=== PATIENT | male | born 1940 ===

== ENCOUNTER 2021-05-25 16:17 | Outpatient (REF) | payer MEDICARE, SELFPAY ==
[2021-05-25 20:52] LABS: Abs Immature Grans 0.01 10^3/uL (0.0-0.06); Absolute Basophil Count 0.02 10^3/uL (0.0-0.2); Absolute Eosinophil Count 0.24 10^3/uL (0.0-0.7); Absolute Lymphocyte Count 1.39 10^3/uL (1.2-3.4); Absolute Monocyte Count 0.52 10^3/uL (0.1-0.8); Absolute Neutrophil Count 2.87 10^3/uL (1.2-6.7); Basophils % 0.4; Eosinophils % 4.8; HCT 42.2 % (40.0-50.0); HGB 13.9 g/dL (13.5-17.5); Immature Grans % 0.2; Lymphocytes % 27.5; MCH 27.3 pg (27.0-33.0); MCHC 32.9 % (32.0-36.0); MCV 82.9 fL (80-95); MPV 9.9 fL (8.0-11.0); Monocytes % 10.3; Neutrophils % 56.8; Nucleated RBC 0 %; Platelet Count 258 10^3/uL (130-400); RBC 5.09 10^6/uL (4.36-5.78); RDW 13.3 % (11.8-14.1); RDW-SD 40.5 fL; WBC 5.05 10^3/uL (4.4-10.8)
[2021-05-25 21:14] LABS: Anion Gap 7.5 mmol/L (3-11); BUN 25 mg/dL (7-18); CO2 28.5 mmol/L (21.0-32.0); CREATININE 0.9 mg/dL (0.70-1.30); Calcium 9.2 mg/dL (8.5-10.1); Chloride 100 mmol/L (98-107); Glucose 134 mg/dL (74-106); Potassium 4.6 mmol/L (3.5-5.1); Sodium 136 mmol/L (136-145)
== END 2021-05-25 16:18 | disposition home or self-care (01) ==
LOC: NCHCN 16:17
PROVIDERS: Visit Provider Physician Assistant
DX: I10 Essential (primary) hypertension (principal); I25.10 Atherosclerotic heart disease of native coronary artery without angina pectoris; I21.3 ST elevation (STEMI) myocardial infarction of unspecified site
CPT/HCPCS: 80048; 85025

== ENCOUNTER 2021-06-16 13:29 | Outpatient (CLI) | payer MEDICARE, SELFPAY ==
--- NOTE | 2021-06-16 13:46 | RT.EKG_ITS ---
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
== END 2021-06-16 13:30 | disposition home or self-care (01) ==
LOC: DI.CARD 13:47
PROVIDERS: PCP Physician Assistant; Referring Provider Physician Assistant; Visit Provider Internal Medicine Cardiovascular Disease
DX: I10 Essential (primary) hypertension (principal); I21.3 ST elevation (STEMI) myocardial infarction of unspecified site
CPT/HCPCS: 93010

== ENCOUNTER → 2021-06-16 13:29 | Outpatient (BNVA) | payer MEDICARE, SELFPAY | PROVIDERS: PCP Physician Assistant; Referring Provider Physician Assistant; Visit Provider Internal Medicine Cardiovascular Disease | DX: I25.2 Old myocardial infarction (principal); I10 Essential (primary) hypertension; I25.10 Atherosclerotic heart disease of native coronary artery without angina pectoris; E78.5 Hyperlipidemia, unspecified | CPT/HCPCS: 93005; 99203 ==

== ENCOUNTER 2021-06-22 19:23 | Outpatient (REF) | payer MEDICARE, SELFPAY ==
--- OUTSIDE RECORDS SUMMARY | 2021-06-22 19:26 | XMS_ITS ---
:1940 Author Organization Department [facility] rs Address [address] [place] [id number] Care Team Providers Name Role Phone PARRIS NEGRO Primary Care Provider Unavailable Insurance Providers: All historical and current Section Date Range: From patient's date of to the date document was created.This section includes the names of all active insurance providers for the patient. Insurance Type of Plan Start of End of Group Member Insurance Policy P atient's Provider Coverage Name Policy Policy Number ID Provider's Mckeon's Relationship Coverage Coverage Telephone Name to Policy Number Mckeon MEDICARE MEDICARE PART Sep 07, PART A [id number] KELIN OLEA PATIENT (WNR) (M) A 2006 37A 1 ES MEDICARE MEDICARE PART Sep 07, PART B [id number] KELIN OLEA PATIENT (WNR) (M) B 2006 37A 1 ES MEDICARE MEDICARE PART Sep 07, PART B [id number] KELIN OLEA PATIENT (WNR) (M) B 2006 [id number] 1 ES UNITED MEDICARE MCR(Apr 09, [id number] CANDI OLEA M PATIENT HEALTHCARE ADVANTAGE NR) [id number] ES MCR (WNR) * Selected Encounter This section includes the information on record at [place] for the Encounter. Date/Time Encounter Type Encounter Reason Provider Source Description Nov 19, 2020 OFFICE O/P EST OPTOMETRY ICD-10-CM Z96.1 ISAAC SANTOS 11:30 AM MOD 30-39 MIN Presence of intraocular lens with Provider Comments: Presence of intraocular lens IHE Encounter Template Text not used by [facility] Assessments - Encounter Diagnoses This section includes the primary and secondary diagnoses documented forthe Encounter. 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 Nov 19, 2020 SECONDARY Presbyopia JIMMIE MARQUEZ 12:24 PM [facility] Surgical Procedures: All associated to the encounter This section includes all Surgical Procedures and Surgical Procedure Notes associated to the Encounter.Surgical Procedures This section includes all Surgical Procedures associated to the Encounter.Surgical Procedure Date/Time Procedure Procedure Type Procedure Provider Source Qualifiers Nov 19, 2020 Comprehensive EYE EXAM&TX TOMISAAC COOPER LAURA 11:30 AM Exam, Estab ESTAB PT [facility] 1/>VST Surgical Notes There are no notes associated with this procedure. Surgical Procedure Date/Time Procedure Procedure Type Procedure Provider Source Qualifiers Nov 19, 2020 Self-Care Ed SELF-CARE ED TOMISAAC SANCHEZ 11:30 AM Provided to Pt PROVIDED TO PT [facility] Surgical Notes There are no notes associated with this procedure. Surgical Procedure Date/Time Procedure Procedure Type Procedure Provider Source Qualifiers Nov 19, 2020 Refraction DETERMINE ISAAC SANTOS ER 11:30 AM REFRACTIVE STATE [facility] Surgical Notes There are no notes associated with this procedure. Social History: Smoking Status (Most current) and Tobacco Use (All prior to encounter date) This section includes the most current, and the historical, smoking and tobacco-related health factors from the [place] facility where the Encounter took place.Current Smoking Status This section includes the most current smoking, or tobacco-related health factor, from the [place] facility where the Encounter took place. Date/Time Current Smoking Status Comment Facility Oct 18, 2020 01:00 PM VA-TOBACCO FORMER USER [place] [facility] Tobacco Use History This section includes a history of the smoking, or tobacco-related health factors, that were collected on or before the date of the Encounter. The data comes from the [place] facility where the Encounter took place. Date/Time Smoking Status/Tobacco Use Comment [facility] Oct 18, 2020 01:00 PM VA-TOBACCO QUIT 15 YRS OR MORE [place] [facility] Mar 28, 2019 04:06 PM VA-TOBACCO FORMER USER [place] [facility] Mar 28, 2019 04:06 PM VA-TOBACCO QUIT 15 YRS OR MORE [place] [facility] Feb 20, 2018 01:21 PM VA-TOBACCO FORMER USER [place] [facility] Feb 20, 2018 01:21 PM VA-TOBACCO QUIT 15 YRS OR MORE [place] [facility] Feb 23, 2017 01:51 PM LIFETIME NON-TOBACCO USER [place] [facility] 1967Mar 29, 2015 02:20 PM QUIT TOBACCO USE > 7 YEARS AGO [place] [facility] 1966Dec 16, 2007 12:52 PM QUIT TOBACCO USE > 7 YEARS AGO [place] [facility] Encounter Notes: All associated encounter notes This section contains the clinical notes associated to the Encounter. Date/Time Encounter Note(s) Provider Source Nov 19, 2020 11:21 AM EYE E & M NOTE: ISAAC SANTOS [facility] LOCAL TITLE: Eye Resident Note/Exam Template [facility] STANDARD TITLE: EYE E & M NOTE DATE OF NOTE: NOV 19, 2020@11:21 ENTRY DATE: NOV 19, 2020@11:21:57 AUTHOR: GUNNAR MEMBRENO COSIGNER: ISAAC SANTOS URGENCY: STATUS: COMPLETED Eye Resident Note/Exam Template Has ADDEN DA NEW OR ESTABLISHED PATIENT OPHTHALMIC EX AMINATION CONSULTATION, SPECIALTY CODE OR E/M SERVICE Active Outpatient Medications (excluding Supplie s): Active Outpatient Medications Status 1) LISINOPRIL 40MG TAB TAKE ONE TABLET BY MOUT H EVERY ACTIVE DAY TO CONTROL BLOOD PRESSURE 2) SIMVASTATIN 20MG TAB TAKE ONE TABLET BY BRAIN TH EVERY ACTIVE DAY TO LOWER CHOLESTEROL Active Non-VA Medications Status 1) Non-VA ASCORBIC ACID TAB DOSAGE UNKNOWN BY MOUTH ACTIVE EVERY DAY 2) Non-VA IBUPROFEN 400MG TAB 400MG BY MOUTH NEEDED ACTIVE 4 Total Medications Allergies/Adverse Reactions: Patient has answered NKA HGB A1C: 5.9 (10/18/20 13:57) GLU: 106 (02/17/20 10:26) BUN: 13 (02/17/20 10:26) B/P: 129/72 (10/18/2020 13:10) BODY MASS INDEX - OCT 18, 2020@13:10:07 23.8 Active problems - Computerized Problem List is t he source for the followin. Tobacco dependence in remission 2. Family history of coronary artery disease 3. Degenerative joint disease of hand 4. History of adenomatous polyp of colon (Estimote D CT [id number]) 5. Hypertension (SNOMED CT 37999375) 6. Hyperlipidemia (SNOMED CT 80807202) 80 year old WHITE MALE, established patient CHIEF COMPLAINT AND HISTORY OF PRESENT ILLNESS ( HPI): pt here for a CEE pt has no visual or ocular complaints pt only wears glasses to read Neurological and Psychiatric Status: Orientation : Oriented to person, time, place Mood and Affect: normal, no agitation, no anxiety, no depressive behaviors in clinic OCULAR HISTORY: Pseudophakic OU Presbyopia OU -Family history of AMD (sister) -h/o lazy eye OS per patient VISUAL ACUITY (without correction) OD: 20/60+1 PH: 20/30- OS: 20/25+1 PH: Current Rx OD +1.75 -2.25 X105 Add:+2.50 OS -0.50 -0.25 X104 Add:+2.50 REFRACTION and BEST-CORRECTED VISION OD: +1.50 - 2.25 x 105 20/25-2 OS: -.50 - 0.25 x 105 20/25+1 Add: +2.50 NVO OD: +4.00 - 2.25 x 105 OS: +2.00 - 0.25 x 105 OCULAR MOTILITY (EOM): Full without diplopia or pain OU, pursuits and saccades intact OU CONFRONTATION VIS GARCIA: full to finger counti ng OD & OS PUPILS: PERRL, NO APD PRESENT OU ORBITS/ADNEXA: Normal OU ANTERIOR SEGMENT AND SLIT LAMP EXAM: Lids/Lashes: OD: tr MGD OS: tr MGD Scleral and Conjunctiva: OD: white and quiet OS: white and quiet Cornea: OD: clear without staining OS: clear without staining Anterior Chamber: clear and free of cells or fl are OU Von Jacinda Angle estimation: OD: 44 OS: 44 Iris: normal/intact OU/ no neovascularization present ou Tonometry: icare OD 9 OS 9 Time: 1140 DILATION OU: PATIENT EDUCATED ON SIDE EFFECTS O F DILATION PRIOR TO DROP INSTILLATION. SIDE EFFECT DISCUSSED INCLUDE LIGH T SENSITIVITY AND BLURRED VISION AT NEAR. 1 gtt 1% Tropicamide 1 gtt 2.5% Phenylephrine INTERNAL EYE EXAMINATION BY SLIT LAMP, FUNDUSCOP Y AND BINOCULAR INDIRECT OPHTHALMOSCOPE: Lens: OD: PCIOL, PCO nasal + temp w/ striae th ru visual axis; centered OS: PCIOL, tr PCO and centered Vitreous: OD: syneresis present OS: syneresis present, (+) PVD Nerve: RIM INTACT AND WITHOUT FOCAL DEFECTS OR PALLOR OU OD C/D: 0.15r, small nerve, PPA 360 OS C/D: 0.10r, small nerve, PPA 360 Macula: RPE mottling, NO macular edema OU Vessels: Normal course and caliber OU Mid-peripheral and Peripheral Retina: Flat and intact 360 degrees OU ASSESSMENT/PLAN 1. Pseudophakic OU - PCO OD nasal and temp w. striae thru visual ax is, tr PCO OS - Reduced vision OD but patient is not bothered // Educate pt on nature of coniditon. No interve ntion indicated at this time. Monitor 2. Dry eye OU - pt asymptomatic //Educate pt on nauture of condition. Recommend AT and warm compresses prn 3. Refractive Error w/ presbyopia //pt wants new NVO Rx only. monitor RTC ORDER: 2 year CEE PATIENT EDUCATION: as above STUDENT SUPERVISION: Optometry student Jimmie Marquez participated in t he care of this patient. The student performed an initial history, review of systems, medication review, and ophthalmic examination. The above note represent s care provided by me and is NOT a student note. Supervising Health Unit Supervisor: Isaac Santos O.D. RESIDENT SUPERVISION: I, Gunnar Membreno, have seen and discusse d this patient with my supervising doctor. (x) My supervising doctor was present for and/ or directly examined this patient. (x) My supervising doctor agrees with my assessment and plan and is identified as a cosigner on this note. Note complete (xx) /brandt/ ISAAC SANTOS OD CHIEF, OPTOMETRY Signed: 11/19/2020 13:23 for GUNNAR MEMBRENO O.D. Optometry Resident /brandt/ ISAAC SANTOS OD CHIEF, OPTOMETRY Cosigned: 11/19/2020 13:23 11/19/2020 ADDENDUM STATUS: COMPLETED I reviewed the entire note above and discussed t he history, findings, and management plan for this pat ient with the resident. I agree with all elements as documented in the above note. /brandt/ ISAAC SANTOS OD CHIEF, OPTOMETRY Signed: 11/19/2020 13:23
--- OUTSIDE RECORDS SUMMARY | 2021-06-22 19:26 | XMS_ITS | Encounter Summary ---
:1940 Author Organization Department [facility] rs Address [address] [place] [address] Care Team Providers Name Role Phone NYENEGRO Suarez Primary Care Provider Unavailable Insurance Providers: All [...] MEDICARE MEDICARE PART Sep 07, PART A [id number] KELIN OLEA PATIENT (WNR) (M) A 2006 37A 1 ES MEDICARE MEDICARE PART Sep 07, PART B [id number] KELIN OLEA PATIENT (WNR) (M) B 2006 37A 1 ES MEDICARE MEDICARE PART Sep 07, PART B [id number] KELIN OLEA PATIENT (WNR) (M) B [id number] 1 ES UNITED MEDICARE MCR(Apr 09, [id number] CANDI OLEA M PATIENT HEALTHCARE ADVANTAGE NR) [id number] ES MCR (WNR) * Selected Encounter This section includes the information on record at [facility] for the Encounter. Date/Time Encounter Type Encounter Description Reason Provider Source Sep 20, 2020 09:13 Outpatient Encounter ADMIN PAT ACTIVTIES AM (MASNONCT) IHE Encounter Template Text not used by [facility] Plan of Treatment: Future Appointments (+ 6 months) and Future Tests (+/- 45 days) The Plan of Treatment section includes future care activities for the patient from all [place] treatment facilities. This section includes future appointments and future orders which are active, pending or scheduled.Future Appointments This section includes appointments that were scheduled to occur 6 months from the date of the Encounter, up to a maximum of 20 appointments. The [facility] [place] [facility] [place] Appointment Date/Time Appointment Type Appointment Facili ty Name Oct 18, 2020 01:00 PM AMBULATORY - [place]ICINE [place] [facility] Nov 19, 2020 11:30 AM AMBULATORY - SURGERY [place] [facility] Lab Results: +/- 30 days of the encounter This section includes the Chemistry and Hematology Lab Results on record with [place] for the patient. Radiology Reports and Pathology Reports are provided separately, in subsequent sections.Lab Results This section contains the Chemistry/Hematology Results that were resulted 30 days before or 30 days after the date of the Encounter. Date/Time Source Result Type Result - Unit Interpretation Reference Range Comment Oct 18, 2020 01:57 [facility] LIPOPROTEIN CHOLESTEROL Specimen Type: PLASMA [facility] FRACT. PANEL Comment: PATIENT NON-FASTING. LIPID PROFILE RESULTS MAY BE MISLEADING Tests performed on [employer] (405) [id number] Ordering Provider: DANIELLE LOW Report Released Date/Time: Oct 18, 2020 01:39 PM Reporting [facility] [address] [facility] [address] Performing Lab: [facility] [address] [facility] [address] CHOLESTEROL 149 mg/dL 0-199 TRIGLYCERIDE 147 mg/dL 0-149 HDL CHOLESTEROL 30 mg/dL L >40 LDL CHOLESTEROL (CALC) 90 mg/dl 0-129 Oct 18, 2020 [facility] GLYCOHEMOGLOBIN (A1C ONLY) Specimen Type: BLOOD 01:57 PM [facility] Comment: Tests performed on [employer] (405) [id number] Ordering Provider: DANIELLE LOW Report Released Date/Time: Oct 18, 2020 01:39 PM Reporting Lab: [facility] [address] [place] [facility] [place] [address] Performing Lab: [facility] [address] [address] HEMOGLOBIN A1C 5.9 % H 4.0-5.6 Social History: Smoking Status (Most current) and Tobacco Use (All prior to encounter date) This section includes the most current, and the historical, smoking and tobacco-related health factors from the [place] facility where the Encounter took place.Current Smoking Status This section includes the most current smoking, or tobacco-related health factor, from the [place] facility where the Encounter took place. Date/Time Current Smoking Status Comment Facility Mar 28, 2019 04:06 PM VA-TOBACCO QUIT 15 YRS OR MORE [facility] Tobacco Use History This section includes a history of the smoking, or tobacco-related health factors, that were collected on or before the date of the Encounter. The data comes from the [place] facility where the Encounter took place. Date/Time Smoking Status/Tobacco Use Comment [facility] Mar 28, 2019 04:06 PM VA-TOBACCO QUIT 15 YRS OR MORE [facility] Feb 20, 2018 01:21 PM VA-TOBACCO FORMER USER [place] [facility] Feb 20, 2018 01:21 PM VA-TOBACCO QUIT 15 YRS OR MORE [facility] [place] [facility] Feb 23, 2017 01:51 PM LIFETIME NON-TOBACCO USER [facility] 1967Mar 29, 2015 02:20 PM QUIT TOBACCO USE > 7 YEARS AGO [facility] 1967Dec 16, 2007 12:52 PM QUIT TOBACCO USE > 7 YEARS AGO [facility] Encounter Notes: All associated encounter notes This section contains the clinical notes associated to the Encounter. Date/Time Encounter Note(s) Provider Source Sep 20, 2020 09:13 AM PRIMARY CARE ADMINISTRATIVE NOTE: [facility] LOCAL TITLE: Administrative Note/Primary Care [facility] STANDARD TITLE: PRIMARY CARE ADMINISTRATIVE NOTE DATE OF NOTE: SEP 20, 2020@09:13 ENTRY DATE: SEP 20, 2020@09:13:24 AUTHOR: BREANN POSEY EXP COSIGNER: URGENCY: STATUS: COMPLETED RETRUDYT,KENYA LIM [address], [place] [address] [phone] DANIELLE LOW WMF 2 P 30 [] [x] Spouse [] Other [id number] MALE presented w/ CHIEF COMPLAINT OF:p t's called and said he already had a wellness check this year @ [facility] and said they are not sure he needs another one. With there insurance they would have to pay for another check-up and they don't want to pay for that. I have faxed for the records. They are thinking a bout going to [facility] due to distance needed to come to [facility]. /brandt/ BREANN POSEY CELLULAR EQUIPMENT INSTALLER Signed: 09/20/2020 09:19 Receipt Acknowledged By: * AWAITING SIGNATURE * DANIELLE LOW E
--- OUTSIDE RECORDS SUMMARY | 2021-06-22 19:26 | XMS_ITS ---
:1940 Author Organization Department [facility] rs Address [address] [place] [id number] Care Team Providers Name Role Phone NYENEGRO [...] MEDICARE MEDICARE PART Sep 07, PART A [id number] KELIN OELA PATIENT (WNR) (M) A 2006 37A 1 ES MEDICARE MEDICARE PART Sep 07, PART B [id number] KELIN OLEA PATIENT (WNR) (M) B 2006 37A 1 ES MEDICARE MEDICARE PART Sep 07, PART B [id number] KELIN OLEA PATIENT (WNR) (M) B 2006 [id number] 1 ES UNITED MEDICARE MCR(Apr 09, [id number] CANDI OLEA M PATIENT HEALTHCARE ADVANTAGE NR) [id number] ES MCR (WNR) * Selected Encounter This section includes the information on record at MD for the Encounter. Date/Time Encounter Type Encounter Reason Provider Source Description Oct 18, 2020 OFFICE O/P EST PRIMARY ICD-10-CM Z86.010 RAFAELA EDGAR 01:00 PM MOD 30-39 MIN CARE/MEDICINE Personal history of colonic polyps with Provider Comments: History of adenomatous polyp of colon ([facility] [id number]) IHE Encounter Template Text not used by [facility] Assessments - Encounter Diagnoses This section includes the primary and secondary diagnoses documented forthe Encounter. Date/Time Primary/Secondary Diagnosis Name Provider Source Diagnosis Oct 19, 2020 PRIMARY Personal history of RAFAELA EDGAR [place] 07:37 AM colonic polyps [facility] Oct 19, 2020 SECONDARY Essential (primary) RAFAELA EDGAR [place] 07:37 AM hypertension [facility] Oct 19, 2020 SECONDARY Other hyperlipidemia RAFAELA EDGAR [place] 07:37 AM [facility] Plan of Treatment: Future Appointments (+ 6 months) and Future Tests (+/- 45 days) The Plan of Treatment section includes future care activities for the patient from all MD treatment facilities. This section includes future appointments and future orders which are active, pending or scheduled.Future Appointments This section includes appointments that were scheduled to occur 6 months from the date of the Encounter, up to a maximum of 20 appointments. [facility] Appointment Date/Time Appointment Type Appointment Facili ty Name Nov 19, 2020 11:30 AM AMBULATORY - SURGERY [place] [facility] Lab Results: +/- 30 days of the encounter This section includes the Chemistry and Hematology Lab Results on record with MD for the patient. Radiology Reports and Pathology Reports are provided separately, in subsequent sections.Lab Results This section contains the Chemistry/Hematology Results that were resulted 30 days before or 30 days after the date of the Encounter. Date/Time Source Result Type Result - Unit Interpretation Reference Range Comment Oct 18, 2020 01:57 [facility]LESTEROL Specimen Type: PLASMA PM [facility] FRACT. PANEL Comment: PATIENT NON-FASTING. LIPID PROFILE RESULTS MAY BE MISLEADING Tests performed on [employer] ([employer]) (694) [id number] Ordering Provider: RAFAELA EDGAR Report Released Date/Time: Oct 18, 2020 01:39 PM Reporting Lab: [place] [facility] [address] [facility] [address] Performing Lab: [place] [facility] [address] [facility] [address] CHOLESTEROL 149 mg/dL 0-199 TRIGLYCERIDE 147 mg/dL 0-149 HDL CHOLESTEROL 30 mg/dL L >40 LDL CHOLESTEROL (CALC) 90 mg/dl 0-129 Oct 18, [address] [facility] GLYCOHEMOGLOBIN (A1C ONLY) Specimen Type: BLOOD 01:57 PM [facility] Comment: Tests performed on [employer] ([employer]) (405) [id number] Ordering Provider: RAFAELA EDGAR Report Released Date/Time: Oct 18, 2020 01:39 PM Reporting Lab: [facility] [address] [facility] [address] Performing Lab: [facility] [address] [facility] [address] HEMOGLOBIN A1C 5.9 % H 4.0-5.6 Vital Signs: All taken on the encounter date This section contains inpatient and outpatient Vital Signs collected on the date of the Encounter. Date/Time Temperature Pulse Blood Respiratory SP02 Pain Height Weight Artemio dy Source Pressure Rate Mass Index Oct 18, 98.2 F 80 129/72 18 /min 96 % 0 63.5 in 136 lb 24 [place] 2020 01:10 /min mm[Hg] [facility] Social History: Smoking Status (Most current) and Tobacco Use (All prior to encounter date) This section includes the most current, and the historical, smoking and tobacco-related health factors from the MD facility where the Encounter took place.Current Smoking Status This section includes the most current smoking, or tobacco-related health factor, from the MD facility where the Encounter took place. Date/Time Current Smoking Status Comment [facility] Oct 18, 2020 01:00 PM VA-TOBACCO FORMER USER [facility] Tobacco Use History This section includes a history of the smoking, or tobacco-related health factors, that were collected on or before the date of the Encounter. The data comes from the MD facility where the Encounter took place. Date/Time Smoking Status/Tobacco Use Comment [facility] Oct 18, 2020 01:00 PM VA-TOBACCO QUIT 15 YRS OR MORE [facility] Mar 28, 2019 04:06 PM VA-TOBACCO FORMER USER [facility] Mar 28, 2019 04:06 PM VA-TOBACCO QUIT 15 YRS OR MORE [facility] Feb 20, 2018 01:21 PM VA-TOBACCO FORMER USER [facility] Feb 20, 2018 01:21 PM VA-TOBACCO QUIT 15 YRS OR MORE [facility] Feb 23, 2017 01:51 PM LIFETIME NON-TOBACCO USER [facility] 1967Mar 29, 2015 02:20 PM QUIT TOBACCO USE > 7 YEARS AGO [facility] 1967Dec 16, 2007 12:52 PM QUIT TOBACCO USE > 7 YEARS AGO [facility] Encounter Notes: All associated encounter notes This section contains the clinical notes associated to the Encounter. Date/Time Encounter Note(s) Provider Source Oct 19, 2020 07:39 AM LETTERS: RAFAELA EDGAR LOCAL TITLE: Letter To Patient [facility] STANDARD TITLE: LETTERS DATE OF NOTE: OCT 19, 2020@07:39 ENTRY DATE: OCT 19, 2020@07:40 AUTHOR: RAFAELA EDGAR EXP COSIGNER: URGENCY: STATUS: COMPLETED [facility] [address] [place] [address] OCT 19, 2020 MR. KENYA OLEA [address] [address] Dear Mr. Kenya Alexandergio: Enclosed please find the results of your recent lab work: good news - the results are in the normal/very near normal r anges (see below): > A1c has decreased since the previous c heck at the MD; keep up the good work! Feel free to share these results with Sophia. Please contact the [facility] if you albert ve any questions or concerns: [phone] ext [phone] or Toll Free at: [phone] [place] ([phone]). Otherwise, we'll see you at your next scheduled appointment . Take care, Rafaela Edgar, MSN, PHARMACY ASSISTANT Nurse Practitioner [facility] Specific lab values are as follows: Collection DT Specimen Test Name Result Units Ref Range ------ ------ ---- ---- ------- - Cholesterol panel = blood lipid levels (indica tor of risk for atherosclerosis, or hardening of the arteries 10/18/2020 13:57 PLASMA!! CHOLESTEROL 149 mg/dL 0 - 199 10/18/2020 13:57 PLASMA!! TRIGLYCERID E 147 mg/dL 0 - 149 10/18/2020 13:57 PLASMA!! HDL CHOLEST KAYLEEN 30 L mg/dL Ref: >=40 10/18/2020 13:57 PLASMA!! LDL 90 mg/dl 0 - 129 - HbA1c: average of blood sugar over the past co uple of months (last three if available) 10/18/2020 13:57 BLOOD !! HEMOGLOBIN A1C 5.9 H % 4.0 - 5.6 02/17/2020 10:27 BLOOD HEMOGLOBIN A1C 6.0 H % 4.0 - 5.6 06/11/2019 12:52 BLOOD !! HEMOGLOBIN A1C 6.2 H % 4.0 - 5.6 Oct 18, 2020 12:28 PM PRIMARY CARE NOTE: RAFAELA EDGAR [place] LOCAL TITLE: [facility]: PRIMARY CARE NOTE DATE OF NOTE: OCT 18, 2020@12:28 ENTRY DATE: OCT 18, 2020@12:28:44 AUTHOR: RAFAELA EDGAR EXP COSIGNER: URGENCY: STATUS: COMPLETED CC: Routine follow-up care Most recent pcp visit: Community Providers: Sophia Juares at [place] HPI: rx through private insurance - [employer] e has established with community pcp in area eye care at [facility] no recurrence of night sweats has cut back on meat and beer and ice cream more fish - very little processed hearing loss - not wearing ALBERT consistentlty but that's ok vision good - followed by [facility] ROS: Gen: energy ok, appetite nml, no f/c; weight sta ble Resp: no new/worsening cough or SOB CV: denies chest pain or palpitations GI: no N/V, stools at baseline MSK: no new or worsening joint/muscle pain Extrem: no edema : no urinary frequency, urgency, hematuria - n o issues Skin: no rashes/lesions Mood: stable PMH: Hypertension Hyperlipidemia Personal History of Colonic Polyps [place] [facility]AND. L ear surgery, hearing aid hx fall- fx rib. 2008 # Rash: L elbow comes and goes - likely atopic d ermatitis/eczema - declines tx or further eval PSURGH: R cataract extraction s/p TA s/p Appy as child. FAM HX: Mom: @89yo. dementia, Parkinson's. DAD : @51 Brother: CT @ 55yo. sister: s/p CT/CABG @ 60yo brother: CABG-@ 64. PGM: hx cancer (1947 ? Site) HABITS: Tobacco: quit smoking in 1968 - prev 2 packs/day Alcohol: winde 1 glass x2 days a week Rec Drug Use: Diet: pretty healthy - cutting back on red meat Caffeine: 2 cups a day Exercise: very active - shovel, move pellets SOCIAL HX: Relationship status: x 49 years a/w. kids: 3 adult children - 1 right behind them; 1 daughter in health care no grandchildren Retired: [employer]. hobbies-> [employer] cars, gardens, reads. MEDS: Active and Recently Outpatient Medicatio ns (including Supplies): Active Outpatient Medications Status 1) LISINOPRIL 40MG TAB TAKE ONE TABLET BY MOUT H EVERY ACTIVE DAY TO CONTROL BLOOD PRESSURE 2) SIMVASTATIN 20MG TAB TAKE ONE TABLET BY BRIAN TH EVERY ACTIVE DAY TO LOWER CHOLESTEROL Active Non-VA Medications Status 1) Non-VA ASCORBIC ACID TAB DOSAGE UNKNOWN BY MOUTH ACTIVE EVERY DAY 2) Non-VA IBUPROFEN 400MG TAB 400MG BY MOUTH NEEDED ACTIVE 4 Total Medications Allergies: Patient has answered NKA Side effects from Meds: []Yes []No LABS: Lab A1c (last three) Collection DT Specimen Test Name Result Units Ref Range 02/17/2020 10:27 BLOOD HEMOGLOBIN A1C 6.0 H % 4.0 - 5.6 06/11/2019 12:52 BLOOD !! HEMOGLOBIN A1C 6.2 H % 4.0 - 5.6 !! Indicates COMMENTS AVAILABLE...Refer to Inte rim Lab Report. B12 - NONE FOUND eGFR Last 3 Results Collection DT Spec CREATI EGFR 02/17/2020 10:26 PLASM 0.88 >60 06/11/2019 12:52 PLASM 0.96 >60 06/07/2018 10:26 PLASM 0.95 >60 GLU,BUN,CREAT,LYTES GLUCOSE BUN CREAT S ODIUM K CHLOR CO2 02/17/20 10:26 106 H 13 0.88 1 39 4.5 102 26 GLU,BUN,CREAT,LYTES ANION eGFR 02/17/20 10:26 11 84 CHOL: 162 (06/11/19 12:52) HDL: 33 (06/11/19 12:52) LDL: 98 (06/11/19 12:52) TRI (06/11/19 12:52) TSH: 1.82 (02/17/20 10:27) HX: Combat: No Service Branch Service # Entered [employer] [id number] JUN 12, 1962 F 1964 HONORABLE OBJ: VS: BP: 129/72 (10/18/2020 13:10) Pulse: 80 (10/18/2020 13:10) Temp: 98.2 F [36.8 C] (10/18/2020 13:10) Resp: 18 (10/18/2020 13:10) HT(in): 63.5 in [161.3 cm] (10/18/2020 13:10) WT(lbs):136 lb [61.8 kg] (10/18/2020 13:10) 10/18/20 @ 1310 PULSE OXIMETRY: 96 BODY MASS INDEX - OCT 18, 2020@13:10:07 23.8 GEN: Well-appearing, NAD EENT: PERR, anicteric, non-injected; ears: discr iminates normal voice NECK: supple, no jvd, no carotid bruit CV: HRR, no m/g/r CHEST: CTA bilat, no crackles or wheezes ABD: soft, nontender EXT: no edema MSK: normal gait, unassisted NEURO:alert, oriented; CN II-XII grossly intact SKIN: warm, dry, no rashes PSYCH: normal affect and demeanor, normal speech pattern ASSESSMENT/PLAN: Mr. Olea is a pleasant 80 m an, dual care - followed more closely by [facility] pcp; he would like to keep pcp in [facility] for now ra ther than transferring to [facility] quite healthy, relatively uncomplicated med hx i ncludes: HTN, HLD, OA, colonic polyps > HTN: well-controlled - continue lisinopril 40mg QD - consider decreasing dose ot 20mg - he will discuss w/ [facility] pcp > HLD: hx well-controlled -> lipid levels today pending -> continue simvastatin 20mg QD > Hx Rhinosinusitis: otc antihistamine helpful - c/w zyrtec prn > Hearing loss: [facility] hearing aids - work well when he decides to wear them > COVID-19: no known hx exposure, denies current sx; following guidelines re distancing/mask wearing; no assistance w/ shoppi ng required - enc continue safe health practices per bettinali abad - C19 vax status: Moderna x2, 2nd in late June > HCM: Labs: lipids and A1c today - pending (an nual 02/2020) Immunizations: utd [employer]: [facility] 08/2017 - rec f/u in 5 yrs AAA Screening: reports [facility] AO exam: 04/2020 Eye exams: [facility] 11/2018 RTC - 12 months, or sooner PRN REMINDERS: COVID-19 Immunization: Moderna COVID-19 Vaccine given previously Patient received a prior dose of the Moderna COVID-19 Vaccine. Date: May, Exact date is unkno wn Location: [facility] Provider Patient received a prior dose of the Moderna COVID-19 Vaccine. Date: June, Exact date is unknown Location: [facility] Provider Depression Ismokl-Fign-N/U: Depression Screening, Evaluation, and Fo llow-Up: Record PHQ-2 A PHQ-2 screen was performed. Th e score was 0 which is a negative screen for depression. Over the past two weeks, how oft en have you been bothered by the following problems? 1. Little interest or pleasure i n doing things Not at all 2. Feeling down, depressed, or h opeless Not at all Results of Depression Screen: (A score of 3 or greater on the PHQ-2 is POSITIVE.) The Depression Screen was negative. Advance Directive Screen: Patient does not have a completed advanced directive on file. Patient is not interested in completing one at this t alexx. The patient received education about advan ce directives as well as written notification of his/her rights. Tobacco Use Screening: The patient is a former tobacco user. The patient quit fifteen or more years ago . Alcohol Use Screen (AUDIT-C): Alcohol Screen: SCREEN FOR ALCOHOL (AUDIT-C) An alcohol screening test (AUDIT-C ) was negative (score=2). 1. How often did you have a drink containing alcohol in the past year? Two to four times a month 2. How many drinks containing alco hol did you have on a typical day when you were drinking in the past year? One or two drinks 3. How often did you have six or m ore drinks on one occasion in the past year? Never Medication Reconciliation: Outpatient: Has the patient been taking medications as documented in the EMLR? YES: The patient has been taking medicatio ns as documented in the EMLR. Essential Medication List for Review used to complete this medication reconciliation. INCLUDED IN THIS LIST: Alphabetical list o f active outpatient [facility] and dispensed from another MD or [facility] facility (remote) as well as inp atient orders (local, pending and active), local clinic medications, loc ally documented non-VA medications, and local prescriptions that have or been discontinued in the past 90 days. - All changes in medic ations, including all non-VA/Herbal/OTC medications were entered into CPRS. - If there were any medications the patien t should no longer take, they were discontinued. - The patient/caregiver was instructed to update this list, discard old lists, and take this list to the next appo intment, whether with a VA or non-VA provider. Depression Screening: Perform PHQ-2 A PHQ-2 screen was performed. The sc ore was 0 which is a negative screen for depression. Over the past two weeks, how often h ave you been bothered by the following problems? 1. Little interest or pleasure in do ing things Not at all 2. Feeling down, depressed, or hopel ess Not at all /brandt/ RAFAELA EDGAR Nurse Practitioner Signed: 10/19/2020 07:38
--- OUTSIDE RECORDS SUMMARY | 2021-06-22 19:26 | XMS_ITS | Continuity of Care Document ---
:1940 Author Organization [facility] Care Team Providers Name Role Phone [facility] Unavailable Unavailable Problems Combined list of problems from Department of Defense and Veterans Affairs facilities. It does not include entries that were removed or entered in error. Problem Status Onset Problem Type Date of Comments Source Date Resolution Degenerative joint Active Condition W DENISSE disease of hand [place] [facility] Family history of Active Condition WH ITE coronary artery [place] disease [facility] History of Active Condition WHITE adenomatous polyp [place] of colon (SNOMED [place] [id number]) Apr 21, 2008 Entered By: RENEE LAL Comment: 04/16/08 Sep 11, 2008 Entered By: RENEE LAL Comment: adenomatous needs follow up 2011 Hyperlipidemia Active Condition WHITE (SNOMED [place] [id number]) [facility] Hypertension Active Condition WHITE (SNOMED [place] [id number]) [facility] Tobacco dependence Active Condition W DENISSE in remission [place] [facility] Apr 12, 2020 Entered By: DENISSE RODRIGUEZ Comment: smoked from age 12 or 13 up until 1968 or 1969, up to 2 ppd Apr 12, 2020 Entered By: DENISSE RODRIGUEZ Comment: appx 20 pack/year hx Diagnosis: active Diagnosis WHITE ICD-10-CM Z96.1 [place] Presence of [facility] intraocular lenswith Provider Comments: Presence of intraocular lens Diagnosis: active Diagnosis WHITE ICD-10-CM Z86.010 [place] Personal history [facility] of colonic polypswith Provider Comments: History of adenomatous polyp of colon (SCT 958952897) Diagnosis: active Diagnosis WHITE ICD-10-CM W99.XXXA R [place] Exposure to oth [facility] man-made environmental factors, init encntrwith Provider Comments: Exposure to other Man-Made Environmental Factors, Initial Encounter Diagnosis: active Diagnosis WHITE ICD-10-CM R63.4 [place] Abnormal weight [facility] losswith Provider Comments: Abnormal Weight Loss Medications Combined list of outpatient medications from Department of Defense and Veterans Affairs facilities. Medications provided include 1) outpatient medications from the last 15 months, and 2) patient-reported medications. Medication Details Route Status Patient Prescription Prescription Last Ordering Order Source Instructions Expires Number Dispense Provider Date Date ASCORBIC TAKE ORAL ACTIVE JENNIFER,PETER 04/12/ WHITE ACID TAB DOSAGE LINE 2020 [place] BY MOUTH [facility] EVERY DAY IBUPROFEN TAKE ONE ORAL ACTIVE JENNIFER,PETER 04/12/ W DENISSE 400MG TAB TABLET LINE 2020 [place] PRN [facility] LISINOPRIL TAKE ONE ORAL 04/24/2021 [id number] S ILVER,TR 04/29/ WHITE 40MG TAB TABLET 1 ISA E 2020 [place]TH [place] EVERY [facility] DAY TO CONTROL BLOOD PRESSURE SIMVASTATIN TAKE ONE ORAL 04/24/2021 [id number] SILVER,TR 04/29/ WHITE 20MG TAB TABLET 1 ISA E 2020 [place]TH [place] EVERY [facility] DAY TO LOWER CHOLESTE ROL Immunizations Combined list of available immunizations from the Department of Defense and Veterans Affairs facilities. Immunization Series Date Administered Site Reaction Lot CVX Drug St atus Comments Source Given By Number Code Health Outcomes Liaison COVID-19 2 complet WH ITE (MODERNA), 2020 ed [place] MRNA, LNP-S, J CT PF, 100 [facility] MCG/0.5 ML DOSE COVID-19 1 complet WH ITE (MODERNA), 2020 ed [place] ER MRNA, LNP-S, J CT PF, 100 [facility] MCG/0.5 ML DOSE INFLUENZA, complet WHITE UNSPECIFIED 2019 ed [place] FORMULATION SANIA T [facility] ZOSTER 2 complet NEWP ORT RECOMBINANT 2019 ed [facility] 1 complet WHIT E RECOMBINANT 2019 ed [place] [facility] INFLUENZA, complet Sun Ri se WHITE SEASONAL, 2018 ed Manner in [place] INJECTABLE [place] SANIA T [place] [facility] INFLUENZA, complet Rite A id WHITE SEASONAL, 2017 ed [place] INJECTABLE [place] [facility] INFLUENZA, complet Site: WHITE SEASONAL, 2017 ed Left RIVE R INJECTABLE Deltoid J [place] [facility] INFLUENZA, complet WHITE UNSPECIFIED 2016 ed [place] FORMULATION SANIA T [facility] INFLUENZA, complet Site: WHITE UNSPECIFIED 2014 ed Right [place] FORMULATION Deltoid [place] [facility] PNEUMOCOCCAL complet WHITE CONJUGATE PCV 2015 ed [place] 13 [place] [facility] INFLUENZA, complet Site: WHITE UNSPECIFIED 2013 ed Right [place] FORMULATION [place] [facility] INFLUENZA, complet Site: BRATTLE UNSPECIFIED 2012 ed Right SANDEEP RO FORMULATION Deltoid [facility] TDAP complet Site: WHITE 2013 ed Left [place] [facility] INFLUENZA, complet WHITE UNSPECIFIED 2011 ed [place] FORMULATION SANIA T [facility] INFLUENZA, complet WHITE UNSPECIFIED 2010 ed [place] FORMULATION SANIA T [facility] ZOSTER LIVE 05/13/ JOSHUA,CYNTHI 121 compl et WHITE 2010 A ed [place] [facility] INFLUENZA, complet Site: WHITE UNSPECIFIED 2009 ed Left [place] FORMULATION Delto[place] [facility] INFLUENZA, complet WHITE UNSPECIFIED 2007 ed [place] FORMULATION SANIA T [facility] PNEUMOCOCCAL, complet Sit e:Left WHITE UNSPECIFIED 2007 ed Deltoid RIVER FORMULATION SANIA T [facility] TD(ADULT) complet dog bit e WHITE UNSPECIFIED 2005 ed [place] FORMULATION SANIA T [facility] Results Combined list of recent chemistry, hematology and other laboratory results from Department of Defense and Veterans Affairs, ranging from 15 months to all on record, depending upon the facility. Order Results Value Reference Date Interpretation Specimen Commen ts Source Name Range LIPOPROTE CHOLESTEROL 149 0 - 199 10/18 Specimen T ype: PLASMA WHITE IN [MASS/VOLUM mg/dL /2020 Comment: PATIENT NON-FASTING. LIPID PROFILE RESULTS MAY BE MISLEADING Tests performed on [employer] (130) SN:[id number] RIVER CHOLESTER E] IN SERUM Ordering Provider: DANIELLE LOW OL FRACT. OR PLASMA Report Released Date/Time: Oct 18, 2020 01:39 PM [facility] PANEL Reporting [facility] [address] [facility] [address] Performing Lab: [facility] [address] [facility] [address] LIPOPROTE TRIGLYCERID 147 0 - 149 10/18 Specimen T ype: PLASMA WHITE IN E mg/dL /2020 Comment: PATIENT NON-FASTING. LIPID PROFILE RESULTS MAY BE MISLEADING Tests performed on [employer] (405) SN:[id number] RIVER CHOLESTER [MASS/VOLUM Ordering Provider: DANIELLE LOW OL FRACT. E] IN SERUM Report Released Date/Time: Oct 18, 2020 01:39 PM [facility] PANEL OR PLASMA Reporting Lab: [place] [facility] [address] [facility] [address] Performing Lab: [place] [facility] [address] [facility] [address] LIPOPROTE CHOLESTEROL 30 mg/dL 40 07/12 L Specimen Type: PLASMA WHITE IN IN HDL /2020 Comment: PATIENT NON-FASTING. LIPID PROFILE RESULTS MAY BE MISLEADING Tests performed on [employer] (405) SN:[id number] RIVER CHOLESTER [MASS/VOLUM Ordering Provider: DANIELLE LOW OL FRACT. E] IN SERUM Report Released Date/Time: Oct 18, 2020 01:39 PM [facility] PANEL OR PLASMA Reporting Lab: [place] [facility] [address] [place] [facility] [place] [place] [address] Performing Lab: [place] [facility] [address] [facility] [address] LIPOPROTE CHOLESTEROL 90 mg/dl 0 - 129 10/18 Specimen Type: PLASMA WHITE IN IN LDL /2020 Comment: PATIENT NON-FASTING. LIPID PROFILE RESULTS MAY BE MISLEADING Tests performed on [employer] (405) SN:[id number] RIVER CHOLESTER [MASS/VOLUM Ordering Provider: DANIELLE LOW OL FRACT. E] IN SERUM Report Released Date/Time: Oct 18, 2020 01:39 PM [facility] PANEL OR PLASMA Reporting Lab: [place] [facility] BY [address] [place] [facility] [place] [place] [address] CALCULATION Performing Lab: [place] [facility] [address] [facility] [address] GLYCOHEMO HEMOGLOBIN 5.9 % 4.0 - 5.6 07/12 H Specimen Type: BLOOD WHITE GLOBIN A1C/HEMOGLO /2020 Comment: Tests performed on [employer] (405) SN:[id number] RIVER (A1C BIN.TOTAL Ordering Provider: DANIELLE LOW ONLY) IN BLOOD BY Report Released Date/Time: Oct 18, 2020 01:39 PM [facility] HPLC Reporting Lab: [place] [facility] [address] [facility] [address] Performing Lab: [place] [facility] [address] [facility] [address] CRP(INFLA C REACTIVE 1.5 mg/L 0 - 5.0 02/16 Specimen T ype: PLASMA WHITE MMATORY) PROTEIN /2019 No comment ente red. RIVER [MASS/VOLUM Ordering Provider: DANIELLE LOW E] IN SERUM Report Released Date/Time: Feb 17, 2020 07:36 AM [facility] OR PLASMA Reporting Lab: [place] [facility] [address] [facility] [address] Performing Lab: [place] [facility] [address] [facility] [address] ESR(NEW) ERYTHROCYTE 11 mm/hr 0 - 20 02/16 Specimen T ype: BLOOD WHITE SEDIMENT /2019 No comment e ntered. RIVER ON RATE Ordering Provider: DANIELLE LOW Report Released Date/Time: Feb 17, 2020 07:36 AM [facility] Reporting Lab: [place] [facility] [address] [facility] [address] Performing Lab: [place] [facility] [address] [facility] [address] CBC LEUKOCYTES 4.7 4.5 - 11.0 02/16 Specimen T ype: BLOOD WHITE PROFILE [#/VOLUME] 10*3/uL /2019 No comment en tered. RIVER IN BLOOD BY Ordering Provider: DANIELLE LOW AUTOMATED Report Released Date/Time: Feb 17, 2020 07:36 AM [facility] COUNT Reporting Lab: [place] [facility] [address] [facility] [address] Performing Lab: [place] [facility] [address] [facility] [address] CBC ERYTHROCYTE 5.15 4.23 - 11 Specimen Typ e: BLOOD WHITE PROFILE S 10*6/uL 5.66 /2019 No comment enter ed. RIVER [#/VOLUME] Ordering Provider: DANIELLE LWO IN BLOOD BY Report Released Date/Time: Feb 17, 2020 07:36 AM [facility] AUTOMATED Reporting Lab: [place] [facility] COUNT [address] [facility] [address] Performing Lab: [place] [facility] [address] [facility] [address] CBC HEMOGLOBIN 14.3 12.8 - 17 02/16 Specimen Ty pe: BLOOD WHITE PROFILE [MASS/VOLUM g/dl /2019 No comment e ntered. RIVER E] IN BLOOD Ordering Provider: DANIELLE LOW Report Released Date/Time: Feb 17, 2020 07:36 AM [facility] Reporting Lab: [place] [facility] [address] [facility] [address] Performing Lab: [place] [facility] [address] [facility] [address] CBC HEMATOCRIT 44.4 % 39.2 - 02/16 Specimen Type : BLOOD WHITE PROFILE [VOLUME 50.4 No comment enter ed. RIVER FRACTION] Ordering Provider: DANIELLE LOW OF BLOOD BY Report Released Date/Time: Feb 17, 2020 07:36 AM [facility] AUTOMATED Reporting Lab: [place] [facility] COUNT [address] [facility] [address] Performing Lab: [place] [facility] [address] [facility] [address] CBC MCV 86.2 fl 82 - 99 02/16 Specimen Type: BLOOD WHITE PROFILE [ENTITIC /2019 No comment ente red. RIVER VOLUME] BY Ordering Provider: DANIELLE LOW AUTOMATED Report Released Date/Time: Feb 17, 2020 07:36 AM [facility] COUNT Reporting Lab: [place] [facility] [address] [facility] [address] Performing Lab: [place] [facility] [address] [facility] [address] CBC MCH 27.8 pg 26.2 - 02/16 Specimen Type: BLOOD WHITE PROFILE [ENTITIC 32.6 /2019 No comment ente red. RIVER MASS] BY Ordering Provider: DANIELLE LOW AUTOMATED Report Released Date/Time: Feb 17, 2020 07:36 AM [facility] COUNT Reporting Lab: [place] [facility] [address] [facility] [address] Performing Lab: [place] [facility] [address] [facility] [address] CBC MCHC 32.2 30.8 - 02/16 Specimen Type: BLOOD WHITE PROFILE [MASS/VOLUM g/dl 35.1 /2019 No comment e ntered. RIVER E] BY Ordering Provider: DANIELLE LOWT AUTOMATED Report Released Date/Time: Feb 17, 2020 07:36 AM [facility] COUNT Reporting Lab: [place] [facility] [address] [facility] [address] Performing Lab: [place] [facility] [address] [facility] [address] CBC PLATELETS 226 140 - 360 11/10 Specimen Typ e: BLOOD WHITE PROFILE [#/VOLUME] 10*3/uL /2019 No comment en tered. RIVER IN BLOOD BY Ordering Provider: DANIELLE LOW J[place] AUTOMATED Report Released Date/Time: Feb 17, 2020 07:36 AM [facility] COUNT Reporting Lab: [place] [facility] [address] [facility] [address] Performing Lab: [place] [facility] [address] [facility] [address] CBC PLATELET 8.6 fl 9.2 - 12.4 11/10 L Specimen Typ e: BLOOD WHITE PROFILE MEAN VOLUME /2019 No comment e ntered. RIVER [ENTITIC Ordering Provider: DANIELLE LOW VOLUME] IN Report Released Date/Time: Feb 17, 2020 07:36 AM [facility] BLOOD BY Reporting Lab: [place] [facility] AUTOMATED [address] [facility] [address] COUNT Performing Lab: [place] [facility] [address] [facility] [address] CBC ERYTHROCYTE 13.4 % 12.0 - 11/10 Specimen Typ e: BLOOD WHITE PROFILE DISTRIBUTIO 16.0 /2019 No comment e ntered. RIVER N WIDTH Ordering Provider: DANIELLE LOW [place] [RATIO] BY Report Released Date/Time: Feb 17, 2020 07:36 AM [facility] AUTOMATED Reporting Lab: [place] [facility] COUNT [address] [facility] [address] Performing Lab: [place] [facility] [address] [facility] [address] CBC LYMPHOCYTES 33.5 % 14.0 - 11/10 Specimen Typ e: BLOOD WHITE PROFILE /100 42.3 /2020 No comment enter ed. RIVER LEUKOCYTES Ordering Provider: DANIELLE LOW [place] IN BLOOD BY Report Released Date/Time: Feb 17, 2020 07:36 AM [facility] AUTOMATED Reporting Lab: [place] [facility] COUNT [address] [facility] [place] [address] Performing Lab: [place] [facility] [address] [facility] [address] CBC MONOCYTES/1 6.2 % 5.1 - 13.7 02/16 Specimen Type: BLOOD WHITE PROFILE No comment enter ed. RIVER LEUKOCYTES Ordering Provider: DANIELLE LOW [place] IN BLOOD BY Report Released Date/Time: Feb 17, 2020 07:36 AM [facility] AUTOMATED Reporting Lab: [place] [facility] COUNT [address] [facility] [address] Performing Lab: [place] [facility] [address] [facility] [address] CBC GRANULOCYTE 55.0 % 43.7 - 02/16 Specimen Typ e: BLOOD WHITE PROFILE S/100 75.8 No comment enter ed. RIVER LEUKOCYTES Ordering Provider: DANIELLE LOW [place] IN BLOOD BY Report Released Date/Time: Feb 17, 2020 07:36 AM [facility] AUTOMATED Reporting Lab: [place] [facility] COUNT [address] [facility] [address] Performing Lab: [place] [facility] [address] [facility] [address] CBC EOSINOPHILS 3.8 % 0.4 - 6.8 02/16 Specimen T ype: BLOOD WHITE PROFILE / No comment enter ed. RIVER LEUKOCYTES Ordering Provider: DANIELLE LOW [place] IN BLOOD BY Report Released Date/Time: Feb 17, 2020 07:36 AM [facility] AUTOMATED Reporting Lab: [place] [facility] COUNT [address] [facility] [address] Performing Lab: [place] [facility] [address] [facility] [place] [address] CBC BASOPHILS/1 1.3 % 0.1 - 2.0 02/16 Specimen T ype: BLOOD WHITE PROFILE No comment enter ed. RIVER LEUKOCYTES Ordering Provider: DANIELLE LOW [place] IN BLOOD BY Report Released Date/Time: Feb 17, 2020 07:36 AM [facility] AUTOMATED Reporting Lab: [place] [facility] COUNT [address] [facility] [address] Performing Lab: [place] [facility] [address] [facility] [address] CBC IMMATURE 0.2 % 0.0 - 0.7 02/16 Specimen Type : BLOOD WHITE PROFILE GRANULOCYTE No comment e ntered. RIVER S/100 Ordering Provider: DANIELLE LOW LEUKOCYTES Report Released Date/Time: Feb 17, 2020 07:36 AM [facility] IN BLOOD BY Reporting Lab: [place] [facility] AUTOMATED [address] [facility] [address] COUNT Performing Lab: [place] [facility] [address] [facility] [address] CBC NUCLEATED 0.0 0.0 - 0.0 02/16 Specimen Typ e: BLOOD WHITE PROFILE ERYTHROCYTE /100WBC /2019 No comment e ntered. RIVER S Ordering Provider: DANIELLE LOW [#/VOLUME] Report Released Date/Time: Feb 17, 2020 07:36 AM [facility] IN BLOOD BY Reporting Lab: [place] [facility] AUTOMATED [address] [facility] [address] COUNT Performing Lab: [place] [facility] [address] [facility] [address] CBC IMMATURE 0.0 0 - 0.06 02/16 Specimen Type: BLOOD WHITE PROFILE GRANULOCYTE 10*3/uL /2019 No comment e ntered. RIVER S Ordering Provider: DANIELLE LOW [#/VOLUME] Report Released Date/Time: Feb 17, 2020 07:36 AM [facility] IN BLOOD Reporting Lab: [place] [facility] [address] [facility] [address] Performing Lab: [place] [facility] [address] [facility] [address] CBC BASOPHILS 0.1 0.01 - 02/16 Specimen Type: BLOOD WHITE PROFILE [#/VOLUME] 10*3/uL 0.13 No comment en tered. RIVER IN BLOOD BY Ordering Provider: DANIELLE LOW AUTOMATED Report Released Date/Time: Feb 17, 2020 07:36 AM [facility] COUNT Reporting Lab: [place] [facility] [address] [facility] [address] Performing Lab: [place] [facility] [address] [facility] [address] CBC EOSINOPHILS 0.2 0.03 - 02/16 Specimen Typ e: BLOOD WHITE PROFILE [#/VOLUME] 10*3/uL 0.44 /2019 No comment en tered. RIVER IN BLOOD BY Ordering Provider: DANIELLE LOW AUTOMATED Report Released Date/Time: Feb 17, 2020 07:36 AM [facility] COUNT Reporting Lab: [place] [facility] [address] [facility] [address] Performing Lab: [place] [facility] [address] [facility] [address] CBC LYMPHOCYTES 1.6 1.0 - 3.2 02/16 Specimen T ype: BLOOD WHITE PROFILE [#/VOLUME] 10*3/uL No comment en tered. RIVER IN BLOOD BY Ordering Provider: DANIELLE LOW AUTOMATED Report Released Date/Time: Feb 17, 2020 07:36 AM [facility] COUNT Reporting Lab: [place] [facility] [address] [facility] [address] Performing Lab: [place] [facility] [address] [facility] [address] CBC MONOCYTES 0.3 0.3 - 1.1 02/16 Specimen Typ e: BLOOD WHITE PROFILE [#/VOLUME] 10*3/uL No comment en tered. RIVER IN BLOOD BY Ordering Provider: DANIELLE LOW AUTOMATED Report Released Date/Time: Feb 17, 2020 07:36 AM [facility] COUNT Reporting Lab: [place] [facility] [address] [facility] [address] Performing Lab: [place] [facility] [address] [facility] [address] CBC NEUTROPHILS 2.6 2.2 - 7.6 02/16 Specimen T ype: BLOOD WHITE PROFILE [#/VOLUME] 10*3/uL No comment en tered. RIVER IN BLOOD BY Ordering Provider: DANIELLE LOW AUTOMATED Report Released Date/Time: Feb 17, 2020 07:36 AM [facility] COUNT Reporting Lab: [place] [facility] [address] [facility] [address] Performing Lab: [place] [facility] [address] [facility] [address] CBC NUCLEATED 0.00 0 - 0 02/16 Specimen Type: BLOOD WHITE PROFILE ERYTHROCYTE 10*3/uL No comment e ntered. RIVER S Ordering Provider: DANIELLE LOW [#/VOLUME] Report Released Date/Time: Feb 17, 2020 07:36 AM [facility] IN BLOOD BY Reporting Lab: [facility] AUTOMATED [address] [facility] [address] COUNT Performing Lab: [facility] [address] [facility] [address] P4 UREA 13 mg/dL 7 - 25 02/16 Specimen Type: PLASMA WHITE GLU,BUN,C NITROGEN /2020 No comment en tered. RIVER REAT,LYTE [MASS/VOLUM Ordering Provider: DANIELLE LOW SCA E] IN SERUM Report Released Date/Time: Feb 17, 2020 07:36 AM [facility] OR PLASMA Reporting Lab: [facility] [address] [facility] [address] Performing Lab: [facility] [address] [facility] [address] P4 SODIUM 139 135 - 145 02/16 Specimen Type: PLASMA WHITE GLU,BUN,C [MOLES/VOLU mmol/L /2019 No comment entered. RIVER REAT,LYTE ME] IN Ordering Provider: DANIELLE LOW SCA SERUM OR Report Released Date/Time: Feb 17, 2020 07:36 AM [facility] PLASMA Reporting Lab: [facility] [facility] [address] [facility] [address] Performing Lab: [facility] [address] [facility] [address] P4 POTASSIUM 4.5 3.5 - 5.0 02/16 Specimen Typ e: PLASMA WHITE GLU,BUN,C [MOLES/VOLU mmol/L /2019 No comment entered. RIVER REAT,LYTE ME] IN Ordering Provider: DANIELLE LOW SCA SERUM OR Report Released Date/Time: Feb 17, 2020 07:36 AM [facility] PLASMA Reporting Lab: [facility] [address] [facility] [address] Performing Lab: [facility] [address] [facility] [address] P4 CHLORIDE 102 100 - 110 02/16 Specimen Type : PLASMA WHITE GLU,BUN,C [MOLES/VOLU mmol/L /2019 No comment entered. RIVER REAT,LYTE ME] IN Ordering Provider: DANIELLE LOW CA SERUM OR Report Released Date/Time: Feb 17, 2020 07:36 AM [facility] PLASMA Reporting Lab: [place] [facility] [address] [facility] [address] Performing Lab: [facility] [facility] [address] [facility] [address] P4 CARBON 26 20 - 30 11/10 Specimen Type: PLASMA WHITE GLU,BUN,C DIOXIDE, mmol/L /2019 No comment en tered. RIVER REAT,LYTE TOTAL Ordering Provider: DANIELLE LOW CA [MOLES/VOLU Report Released Date/Time: Feb 17, 2020 07:36 AM [facility] ME] IN Reporting Lab: [place] [facility] [facility] SERUM OR [address] [facility] [address] PLASMA Performing Lab: [facility] [address] P4 ANION GAP 11 4 - 16 02/16 Specimen Type: PLASMA WHITE GLU,BUN,C IN SERUM OR mmol/L /2019 No comment entered. RIVER REAT,LYTE PLASMA Ordering Provider: DANIELLE LOW SCA Report Released Date/Time: Feb 17, 2020 07:36 AM [facility] Reporting Lab: [place] [facility] [facility] [address] [facility] [address] Performing Lab: [facility] [facility] [address] [facility] [address] P4 GLUCOSE 106 65 - 100 11/10 H Specimen Type: PLASMA WHITE GLU,BUN,C [MASS/VOLUM mg/dL /2019 No comment entered. RIVER REAT,LYTE E] IN SERUM Ordering Provider: DANIELLE LOWCA OR PLASMA Report Released Date/Time: Feb 17, 2020 07:36 AM [facility] Reporting Lab: [facility] [address] [facility] [address] Performing Lab: [facility] [address] [facility] [address] P4 CREATININE 0.88 0.5 - 1.5 11 Specimen Ty pe: PLASMA WHITE GLU,BUN,C [MASS/VOLUM mg/dl /2019 No comment entered. RIVER REAT,LYTE E] IN SERUM Ordering Provider: SILVER,DANIELLE E JCT S,CA OR PLASMA Report Released Date/Time: Feb 17, 2020 07:36 AM [facility] Reporting Lab: [place] [facility] [address] [facility] [address] Performing Lab: [facility] [address] [facility] [address] P4 CALCIUM 9.8 8.5 - 10.5 02/16 Specimen Type : PLASMA WHITE GLU,BUN,C [MASS/VOLUM mg/dL /2019 No comment entered. RIVER REAT,LYTE E] IN SERUM Ordering Provider: DANIELLE LOWT S,CA OR PLASMA Report Released Date/Time: Feb 17, 2020 07:36 AM [facility] Reporting Lab: [place] [facility] [address] [facility] [address] Performing Lab: [facility] [address] [facility] [address] P4 GLOMERULAR 84 60 02/16 Specimen Type : PLASMA WHITE GLU,BUN,C FILTRATION mL/min /2019 No comment entered. RIVER REAT,LYTE RATE/1.73 Ordering Provider: DANIELLE LOW S,CA SQ Report Released Date/Time: Feb 17, 2020 07:36 AM [facility] M.PREDICTED Reporting Lab: [facility] [[address] [facility] [address] RATE/AREA] Performing Lab: [facility] OR [address] [facility] [address] PLASMA BY CREATININE- BASED FORMULA (MDRD) LIVER PROTEIN 7.6 g/dL 6.0 - 8.5 02/16 Specimen Type : PLASMA WHITE PROFILE [MASS/VOLUM /2019 No comment e ntered. RIVER E] IN SERUM Ordering Provider: DANIELLE LOW [place] PLASMA Report Released Date/Time: Feb 17, 2020 07:36 AM [facility] Reporting Lab: [facility] [place] [facility] [address] [facility] [address] Performing Lab: [facility] [place] [facility] [address] [facility] [address] LIVER ALBUMIN 4.0 g/dL 3.2 - 5.0 02/16 Specimen Type : PLASMA WHITE PROFILE [MASS/VOLUM /2019 No comment e ntered. RIVER E] IN SERUM Ordering Provider: DANIELLE LOW [place] PLASMA Report Released Date/Time: Feb 17, 2020 07:36 AM [facility] Reporting Lab: [place] [facility] [address] [facility] [address] Performing Lab: [place] [facility] [address] [facility] [address] LIVER BILIRUBIN.T 0.8 0.2 - 1.2 02/16 Specimen T ype: PLASMA WHITE PROFILE OTAL mg/dL /2019 No comment enter ed. RIVER [MASS/VOLUM Ordering Provider: DANIELLE LOW E] IN SERUM Report Released Date/Time: Feb 17, 2020 07:36 AM [facility] OR PLASMA Reporting Lab: [place] [facility] [address] [facility] [address] Performing Lab: [place] [facility] [address] [facility] [address] LIVER ALKALINE 58 U/L 40 - 150 02/16 Specimen Type: PLASMA WHITE PROFILE PHOSPHATASE /2019 No comment e ntered. RIVER [ENZYMATIC Ordering Provider: DANIELLE LOW ACTIVITY/VO Report Released Date/Time: Feb 17, 2020 07:36 AM [facility] LUME] IN Reporting Lab: [place] [facility] SERUM OR [address] [facility] [address] PLASMA Performing Lab: [place] [facility] [address] [facility] [address] LIVER ALANINE 18 U/L 7 - 52 02/16 Specimen Type: PLASMA WHITE PROFILE AMINOTRANSF /2019 No comment e ntered. RIVER ERASE Ordering Provider: DANIELLE LOW [ENZYMATIC Report Released Date/Time: Feb 17, 2020 07:36 AM [facility] ACTIVITY/VO Reporting Lab: [place] [facility] LUME] IN [address] [facility] [address] SERUM OR Performing Lab: [place] [facility] PLASMA [address] [facility] [place] [address] LIVER ASPARTATE 18 U/L 5 - 34 02/16 Specimen Type: PLASMA WHITE PROFILE AMINOTRANSF /2019 No comment e ntered. RIVER ERASE Ordering Provider: DANIELLE LOW [ENZYMATIC Report Released Date/Time: Feb 17, 2020 07:36 AM [facility] ACTIVITY/VO Reporting Lab: [place] [facility] LUME] IN [address] [facility] [address] SERUM OR Performing Lab: [facility] PLASMA [address] [facility] [address] LIVER FIB-4 SCORE 1.46 <2.67 - 02/16 Specimen Typ e: PLASMA WHITE PROFILE INDEX 2.67 /2019 No comment enter ed. RIVER Ordering Provider: DANIELLE LOW Report Released Date/Time: Feb 17, 2020 07:36 AM [facility] Reporting Lab: [facility] [address] [facility] [address] Performing Lab: [facility] [address] [facility] [address] GLYCOHEMO HEMOGLOBIN 6.0 % 4.0 - 5.6 02/16 H Specimen Type: BLOOD WHITE GLOBIN A1C/HEMOGLO /2019 No comment e ntered. RIVER (A1C BIN.TOTAL Ordering Provider: DANIELLE LOW ONLY) IN BLOOD BY Report Released Date/Time: Feb 17, 2020 07:36 AM [facility] HPLC Reporting Lab: [place] [facility] [address] [facility] [address] Performing Lab: [place] [facility] [address] [facility] [address] URINALYSI COLOR OF Yellow 02/16 Specimen Type : URINE WHITE S URINE /2019 No comment enter ed. RIVER W/REFLEX Ordering Provider: DANIELLE LOW TO Report Released Date/Time: Feb 17, 2020 07:36 AM [facility] CULTURE Reporting Lab: [facility] [address] [facility] [address] Performing Lab: [place] [facility] [address] [facility] [address] URINALYSI SPECIFIC 1.015 1.003 - 02/16 Specimen Type : URINE WHITE S GRAVITY OF 1.030 /2019 No comment en tered. RIVER W/REFLEX URINE BY Ordering Provider: DANIELLE LOW TO REFRACTOMET Report Released Date/Time: Feb 17, 2020 07:36 AM [facility] CULTURE RY Reporting Lab: [facility] [address] [facility] [address] Performing Lab: [place] [address] [facility] [address] URINALYSI UROBILINOGE <2.0mg/d <2.0 - 2.0 11/10 Specim en Type: URINE WHITE S N L /2019 No comment enter ed. RIVER W/REFLEX [MASS/VOLUM Ordering Provider: DANIELLE LOW TO E] IN URINE Report Released Date/Time: Feb 17, 2020 07:36 AM [facility] CULTURE Reporting Lab: [place] [facility] [address] [facility] [address] Performing Lab: [place] [facility] [address] [facility] [address] URINALYSI BILIRUBIN.T NEG 02/16 Specimen T ype: URINE WHITE S OTAL No comment enter ed. RIVER W/REFLEX [PRESENCE] Ordering Provider: DANIELLE LOW TO IN URINE BY Report Released Date/Time: Feb 17, 2020 07:36 AM [facility] CULTURE TEST STRIP Reporting Lab: [place] [facility] [address] [facility] [address] Performing Lab: [place] [facility] [address] [facility] [address] URINALYSI KETONES NEGmg/dL 02/16 Specimen Type : URINE WHITE S [PRESENCE] /2019 No comment en tered. RIVER W/REFLEX IN URINE Ordering Provider: DANIELLE LOW TO Report Released Date/Time: Feb 17, 2020 07:36 AM [facility] CULTURE Reporting Lab: [place] [facility] [address] [facility] [address] Performing Lab: [place] [facility] [address] [facility] [address] URINALYSI GLUCOSE NEGmg/dL 02/16 Specimen Type : URINE WHITE S [MASS/VOLUM No comment e ntered. RIVER W/REFLEX E] IN URINE Ordering Provider: DANIELLE LOW TO BY TEST Report Released Date/Time: Feb 17, 2020 07:36 AM [facility] CULTURE STRIP Reporting Lab: [place] [facility] [address] [facility] [address] Performing Lab: [place] [facility] [address] [facility] [address] URINALYSI PROTEIN NEGmg/dL 02/16 Specimen Type : URINE WHITE S [MASS/VOLUM No comment e ntered. RIVER W/REFLEX E] IN URINE Ordering Provider: DANIELLE LOW TO BY TEST Report Released Date/Time: Feb 17, 2020 07:36 AM [facility] CULTURE STRIP Reporting Lab: [place] [facility] [address] [facility] [address] Performing Lab: [place] [facility] [address] [facility] [address] URINALYSI PH OF URINE 5.0 5 - 8 1110 Specimen T ype: URINE WHITE S BY TEST /2019 No comment enter ed. RIVER W/REFLEX STRIP Ordering Provider: DANIELLE LOW TO Report Released Date/Time: Feb 17, 2020 07:36 AM [facility] CULTURE Reporting Lab: [place] [facility] [address] [facility] [address] Performing Lab: [place] [facility] [address] [facility] [address] URINALYSI APPEARANCE CLEAR 02/16 Specimen Ty pe: URINE WHITE S OF URINE /2019 No comment ente red. RIVER W/REFLEX Ordering Provider: DANIELLE LOW TO Report Released Date/Time: Feb 17, 2020 07:36 AM [facility] CULTURE Reporting Lab: [place] [facility] [address] [facility] [address] Performing Lab: [place] [facility] [address] [facility] [address] URINALYSI HEMOGLOBIN NEG 02/16 Specimen Ty pe: URINE WHITE S [PRESENCE] /2019 No comment en tered. RIVER W/REFLEX IN URINE Ordering Provider: DANIELLE LOW TO Report Released Date/Time: Feb 17, 2020 07:36 AM [facility] CULTURE Reporting Lab: [place] [facility] [address] [facility] [address] Performing Lab: [place] [facility] [address] [facility] [address] URINALYSI NITRITE NEG 02/16 Specimen Type: URINE WHITE S [PRESENCE] /2019 No comment en tered. RIVER W/REFLEX IN URINE BY Ordering Provider: DANIELLE LOW TO TEST STRIP Report Released Date/Time: Feb 17, 2020 07:36 AM [facility] CULTURE Reporting Lab: [place] [facility] [address] [facility] [address] Performing Lab: [place] [facility] [address] [facility] [address] URINALYSI LEUKOCYTES NEG 02/16 Specimen Ty pe: URINE WHITE S [PRESENCE] /2019 No comment en tered. RIVER W/REFLEX IN URINE Ordering Provider: DANIELLE LOW TO Report Released Date/Time: Feb 17, 2020 07:36 AM [facility] CULTURE Reporting Lab: [facility] [address] [facility] [address] Performing Lab: [place] [facility] [address] [facility] [address] THYROID THYROTROPIN 1.82 0.35 - 02/16 Specimen Typ e: SERUM WHITE TESTING [UNITS/VOLU uIU/mL 5. Comment: Added by [id number] on Feb 17, 2020@11:17 Added by [id number] on Feb 17, 2020@12:03 TSH within normal limits. Reflex testing not required. LAURA NAVARRO [place]] IN Ordering Provider: DANIELLE LOW SERUM OR Report Released Date/Time: Feb 17, 2020 07:36 AM [facility] PLASMA Reporting Lab: [place] [facility] [address] [facility] [address] Performing Lab: [place] [facility] [address] [facility] [address] THYROID REFLEX comment 02/16 Specimen Type: SERUM WHITE TESTING TESTING /2019 Comment: Added by [id number] on Feb 17, 2020@11:17 Added by [id number] on Feb 17, 2020@12:03 TSH within normal limits. Reflex testing not required. LAURA RAMON Ordering Provider: DANIELLE LOW Report Released Date/Time: Feb 17, 2020 07:36 AM [facility] Reporting Lab: [facility] [address] [facility] [address] Performing Lab: [facility] [facility] [address] [facility] [address] Vital Signs Combined list of inpatient and outpatient Vital Signs from Department of Defense and Veterans Affairs, ranging from 12 months to all on record, depending upon the facility. Vital Sign Value Date Comments Source SYSTOLIC BLOOD 129mm[Hg] 10/18/[address] [place] [facility] PRESSURE 13:10:07 [facility] DIASTOLIC BLOOD 72mm[Hg] [facility] PULSE OXIMETRY 96% 10/18/[address] 13:10:07 [facility] WEIGHT 136[lb_av] 10/18/2020 [place] 13:10:07 [facility] BMI 24kg/m2 10/18/2020 [place] 13:10:07 [facility] PAIN 0 10/18/2020 [place] 13:10:07 [facility] HEIGHT 63.5[in_us] 10/18/2020 [place] 13:10:07 [facility] TEMPERATURE 98.2[degF] 10/18/2020 [place] 13:10:07 [facility] PULSE 80/min 10/18/2020 [place] 13:10:07 [facility] RESPIRATION 18/min 10/18/2020 [place] 13:10:07 [facility] Encounters Combined list of: 1) Encounters from Department of Veterans Affairs facilities going back up to thelast 18 months, not all VA inpatient encounters are included; 2) Encounters from the Department of Defense facilities going backup to 280 months. Location Location Encounter Encounter Reason Attending ADM [place] Stat us Disposition Source Details Type Number For Provider Date Date Visit Outpatient 02/11 [facility] Encounter [id number] /2019 [place] [facility] OFFICE/OUT Diagnos MARANDAXAVIER 02/16 WHITE PATIENT [id number] is: DI E /2019 [place] VISIT EST ICD-10- [place] [facility] R63.4 Abnorma l weight loss
with Provide r Comment s: Abnorma l Weight Loss OFFICE O/P [id number] Diagnos DAVIDE RODRIGUEZ 04/12 WHITE EST [place] [id number] is: INE /2020 RIVER 40-54 MIN ICD-10- [place] [facility] W99.XXX A Exposur e to oth man-mad e environ mental factors , init encntr< br/>wit h Provide r Comment s: Exposur e to other Man-Mad e Environ mental Factors , Initial Encount er Outpatient [id number] 04/23 [place] Encounter [id number] /[place] [facility] [place] [id number] 05/10 [facility] [place] Encounter [id number] /2020 [place] [facility] Outpatient [id number] 06/07 [facility] [place] Encounter [id number] /[place] [facility] [place] [id number] 09/20 WH[place] Encounter [id number] /2020 [place] [facility] OFFICE O/P 09032-8.40 Diagnos SILVER,XAVIER 10/18 WHITE EST MOD [id number] is: DI E /2020 RIVER 30-39 MIN ICD-10- [place] [facility] Z86.010 Persona l history of colonic polyps< br/>wit h Provide r Comment s: History of adenoma tous polyp of colon (SCT [id number]) OFFICE O/P 28113-5.40 Diagnos SANTOS,AND 11/19 WHITE EST MOD [id number] is: JANNETTE /2020 RIVER 30-39 MIN ICD-10- [place] [facility] Z96.1 Presenc e of intraoc ular lens
with Provide r Comment s: Presenc e of intraoc ular lens Outpatient [id number] 05/20 [place] Encounter [id number] /[place] [facility] [place] [id number] 06/08 [facility] Encounter [id number] /2021 [place] [facility] Social History Combined list of available smoking, tobacco, and other social history [facility]. Social History Response Date Comment Source Type Tobacco smoking VA-TOBACCO FORMER 10/18/2020 [facility] [place] status NHIS USER [facility] History of tobacco VA-TOBACCO QUIT 15 10/18/2020 [place] use YRS OR MORE [facility] History of tobacco VA-TOBACCO QUIT 15 03/28/2019 [facility] [place] use [facility] [place] MORE [facility] History of tobacco VA-TOBACCO FORMER 02/20/2018 [place] use USER [facility] History of tobacco LIFETIME 02/23/20171967 [place] use NON-TOBACCO USER [facility] History of tobacco QUIT TOBACCO USE > 03/29/2015 1968 [facility] [place] use 7 YEARS AGO [facility] History of tobacco QUIT TOBACCO USE > 12/16/2007 [place] [place] use 7 YEARS AGO [facility] Plan of Care List of future care activities from Department of Veterans Affairs facilities. Additional future care activities may be listed in the Assessment and Plan section. Date/Time Care Activity Care Activity Detail Facility 10/17/2021 AMBULATORY - NONE AMBULATORY - NONE [facility]
--- OUTSIDE RECORDS SUMMARY | 2021-06-22 19:26 | XMS_ITS | Encounter Summary ---
:1940 Author Organization Department [facility] Address [address] [place] [id number] Care Team Providers Name Role Phone NEGRO NYE Primary Care Provider Unavailable Insurance Providers: All [...] MEDICARE MEDICARE PART Sep 07, PART A [id number] [phone] KELIN OLEA PATIENT (WNR) (M) A 2006 37A 1 ES MEDICARE MEDICARE PART Sep 07, PART B [id number] KELIN OLEA PATIENT (WNR) (M) B 2006 37A 1 ES MEDICARE MEDICARE PART Sep 07, PART B [id number] KELIN OLEA PATIENT (WNR) (M) B 2006 [id number] 1 ES UNITED MEDICARE MCR(Apr [id number], [id number] [phone] CANDI OLEA M PATIENT HEALTHCARE ADVANTAGE NR) 2019 57 0 ES MCR (WNR) * Selected Encounter This section includes the information on record at VA for the Encounter. Date/Time Encounter Type Encounter Description Reason Provider Source Jun 08, 2021 11:00 Outpatient Encounter COMMUNITY CARE PM CONSULT IHE Encounter Template Text not used by VA Plan of Treatment: Future Appointments (+ 6 months) and Future Tests (+/- 45 days) The Plan of Treatment section includes future care activities for the patient from all [place] treatment facilities. This section includes future appointments and future orders which are active, pending or scheduled.Future Appointments This section includes appointments that were scheduled to occur 6 months from the date of the Encounter, up to a maximum of 20 appointments. The data comes from all [facility]. Appointment Date/Time Appointment Type Appointment Facili ty Name Oct 17, 2021 09:45 AM AMBULATORY - NONE [facility] Social History: Smoking Status (Most current) and Tobacco Use (All prior to encounter date) This section includes the most current, and the historical, smoking and tobacco-related health factors from the [place] facility where the Encounter took place.Current Smoking Status This section includes the most current smoking, or tobacco-related health factor, from the [place] facility where the Encounter took place. Date/Time Current Smoking Status Comment Facility Oct 18, 2020 01:00 PM VA-TOBACCO FORMER USER [facility] Tobacco Use History This section includes a history of the smoking, or tobacco-related health factors, that were collected on or before the date of the Encounter. The data comes from the [place] facility where the Encounter took place. Date/Time Smoking Status/Tobacco Use Comment [facility] Oct 18, 2020 01:00 PM VA-TOBACCO QUIT 15 YRS OR MORE [facility] Mar 28, 2019 04:06 PM VA-TOBACCO FORMER USER [place] [facility] Mar 28, 2019 04:06 PM VA-TOBACCO QUIT 15 YRS OR MORE [facility] Feb 20, 2018 01:21 PM VA-TOBACCO FORMER USER I [place] [facility] Feb 20, 2018 01:21 PM VA-TOBACCO QUIT 15 YRS OR MORE [facility] Feb 23, 2017 01:51 PM LIFETIME NON-TOBACCO USER [facility] 1967Mar 29, 2015 02:20 PM QUIT TOBACCO USE > 7 YEARS AGO [facility] 1967Dec 16, 2007 12:52 PM QUIT TOBACCO USE > 7 YEARS AGO [facility] Encounter Notes: All associated encounter notes This section contains the clinical notes associated to the Encounter. Date/Time Encounter Note(s) Provider Source Jun 08, 2021 11:00 PM NONVA NOTE: [facility] LOC[facility] TITLE: COMMUNITY CARE COORDINATION PLAN STANDARD TITLE: NONVA NOTE DATE OF NOTE: JUN 08, 2021@23:00 ENTRY DATE: JUN 09, 2021@08:27:38 AUTHOR: DAYSI RODRIGUEZ COSIGNER: URGENCY: STATUS: COMPLETED COMMUNITY CARE COORDINATION PLAN Has ADDE NDA self-presented to community emergency fa cility Emergency Notification Intake Date Presenting to the Facility: Jun @ 11 pm [facility] Hospital Name: Hospital: [facility] enter Address: [address] [place] [address] City: [place] State: [place] Zip Code: [address] Chief complaint: Shortness of Breath; Couldnt Br eathe Primary Diagnosis: Patient Admitted? 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 Marlon hallman notes/results in JLV: [facility] Summaries/Results. /samaria QUAN RN [facility] EMERGENCY NUCLEAR MONITORING TECHNICIAN Signed: 06/09/2021 08:36
[2021-06-22 21:47] LABS: ESR 27 mm/hr (0-20)
[2021-06-22 22:06] LABS: ALT 79 U/L (16-63); AST 45 U/L (15-37); Albumin 2.6 g/dL (3.4-5.0); Alkaline Phosphatase 104 U/L (46-116); Bilirubin, Direct 0.2 mg/dL (0.0-0.2); Bilirubin, Total 0.4 mg/dL (0.2-1.0); C-Reactive Protein 5.12 mg/dL (0.0-0.3); Total Protein 6.6 g/dL (6.4-8.2)
[2021-06-23 19:49] LABS: CEA 2.9 ng/mL (See Note); PSA, Screening 2.2 ng/mL (0.0-6.5)
[2021-06-24 14:49] LABS: Albumin 43.3 % (55.8-66.1); Comment (See Note); Monoclonal Spike 4.3 % (None Seen); Total Protein 6.2 g/dL (6.3-8.2)
[2021-08-24 15:08] LABS: Immunotyping, Serum (See Note)
== END 2021-06-22 19:24 | disposition home or self-care (01) ==
LOC: NCHCN 19:23
PROVIDERS: PCP Physician Assistant; Visit Provider Internal Medicine
DX: R61 Generalized hyperhidrosis (principal); H91.90 Unspecified hearing loss, unspecified ear; I24.1 Dressler's syndrome; Z12.5 Encounter for screening for malignant neoplasm of prostate
CPT/HCPCS: 80076; 84153; 85652; 82378; 84165; 84443; 86140; 86320

== ENCOUNTER → 2021-09-15 13:29 | Outpatient (BNVA) | payer MEDICARE, SELFPAY | PROVIDERS: PCP Physician Assistant; Referring Provider Physician Assistant; Visit Provider Internal Medicine Cardiovascular Disease | DX: I25.2 Old myocardial infarction (principal); Z95.5 Presence of coronary angioplasty implant and graft; I25.10 Atherosclerotic heart disease of native coronary artery without angina pectoris | CPT/HCPCS: 99213 ==

== ENCOUNTER → 2022-03-16 13:48 | Outpatient (BNVA) | payer MEDICARE, SELFPAY | PROVIDERS: PCP Physician Assistant; Referring Provider Physician Assistant; Visit Provider Internal Medicine Cardiovascular Disease | DX: Z95.5 Presence of coronary angioplasty implant and graft (principal); I25.10 Atherosclerotic heart disease of native coronary artery without angina pectoris; C45.9 Mesothelioma, unspecified | CPT/HCPCS: 99212; 99442 ==